=== PATIENT | female | born 1965 | race Two or more races ===

== ENCOUNTER 2017-11-25 09:52 | Outpatient (CLI) | payer OTHER | END 2017-11-25 09:58 | disposition home or self-care (01) | LOC: RAD 09:52 | DX: M79.631 Pain in right forearm (principal); M25.511 Pain in right shoulder ==

== ENCOUNTER 2017-12-22 09:17 | Outpatient (CLI) | payer OTHER | END 2017-12-22 10:56 | disposition home or self-care (01) | LOC: MAMO-SONO 09:17 | DX: Z13.820 Encounter for screening for osteoporosis (principal); Z12.31 Encounter for screening mammogram for malignant neoplasm of breast; M79.631 Pain in right forearm ==

== ENCOUNTER 2018-01-05 10:38 | Outpatient (CLI) | payer OTHER | END 2018-01-05 11:00 | disposition home or self-care (01) | LOC: NUCLEAR 10:38 | DX: M79.631 Pain in right forearm (principal); Z13.820 Encounter for screening for osteoporosis; Z12.31 Encounter for screening mammogram for malignant neoplasm of breast ==

== ENCOUNTER 2018-04-24 08:22 | Outpatient (CLI) | payer OTHER | END 2018-04-24 08:34 | disposition home or self-care (01) | LOC: SONOGRAMA 08:22 → MAMO-SONO 08:45 | DX: D25.1 Intramural leiomyoma of uterus (principal) ==

== ENCOUNTER 2018-09-03 20:26 | Emergency (ER) | payer OTHER ==
[~2018-09-03] VITALS: Ht 152.4 cm; Wt 64.4 kg
[2018-09-03] MEDS ORDERED: ZITHROMAX500 MG PO (21:18)
== END 2018-09-03 21:29 | disposition home or self-care (01) ==
LOC: ER 20:26
DX: J01.80 Other acute sinusitis (principal)

== ENCOUNTER 2019-02-20 08:34 | Outpatient (CLI) | payer OTHER ==
[~2019-02-20 08:34] MED LIST: ZITHROMAX500 MG PO
== END 2019-02-20 08:36 | disposition home or self-care (01) ==
LOC: RAD 08:34
DX: I11.9 Hypertensive heart disease without heart failure (principal); I70.0 Atherosclerosis of aorta; M25.00 Hemarthrosis, unspecified joint

== ENCOUNTER 2019-03-01 13:07 | Outpatient (CLI) | payer OTHER | END 2019-03-01 13:17 | disposition home or self-care (01) | LOC: MAMO-SONO 13:07 | DX: Z12.31 Encounter for screening mammogram for malignant neoplasm of breast (principal); Z87.898 Personal history of other specified conditions ==